=== PATIENT | male | born 1990 | race African-American/Black ===

== ENCOUNTER 2021-08-19 12:22 | Emergency (ER) | payer OTHER ==
[2021-08-19] MEDS ORDERED: Ketorolac Tromethamine 30 MG/ML VIAL ONE (14:06)
== END 2021-08-19 14:06 | disposition home or self-care (01) ==
LOC: CSHERS 12:22
DX: M54.50 Low back pain, unspecified (principal); M25.512 Pain in left shoulder; F17.290 Nicotine dependence, other tobacco product, uncomplicated; V43.52XA Car driver injured in collision with other type car in traffic accident, initial encounter
CPT/HCPCS: 96372; 99283; J1885